=== PATIENT | male | born 1965 | race Caucasian/White ===

== ENCOUNTER 2020-06-29 17:07 | Emergency (ER) | payer OTHER ==
[~2020-06-29] VITALS: Ht 180.3 cm; Wt 104.3 kg
[~2020-06-29 17:07] MED LIST: ASPIR 8181 MG PO; ASPIRIN325 MG PO; ATENOLOL25 MG PO; GABAPENTIN300 MG PO; HUMALOG100 UNIT/1 SC; LEVEMIR100 UNIT/1 SC; LIPITOR40 MG PO; METFORMIN HCL500 MG PO; NOVOLOG100 UNIT/1 SC; PEPCID20 MG PO; PLAVIX75 MG PO; PROPAFENONE HC225 M1 PO; ZESTRIL2.5 MG PO; ZOCOR20 MG PO; ZOLOFT100 MG PO; ZOLOFT50 MG PO
[2020-06-29] MEDS ORDERED: SODIUM CHLORIDE 0.9% 1000ML 1,000 ML IV STA (17:22)
[2020-06-29] MEDS ORDERED: ASPIRIN 81 MG CHEW TAB PO ONE (17:30)
[2020-06-29 17:49] LABS: BASOPHILS # (AUTO) 0.1 (0.0-0.1); BASOPHILS % 0.7 % (0.0-1.0); EOSINOPHILS # (AUTO) 0.4 (0.0-0.4); HEMATOCRIT 48.4 % (38.2-49.6); HEMOGLOBIN 16.2 g/dL (14.0-18.0); LYMPHOCYTES # (AUTO) 2.3 (1.0-3.2); LYMPHOCYTES % 23.9 % (18.0-39.1); MEAN CORPUSCULAR HEMOGLOBIN 28.7 pg (28-32); MEAN CORPUSCULAR HGB CONC 33.5 g/dL (31-35); MEAN CORPUSCULAR VOLUME 85.7 fL (81-99); MONOCYTES # (AUTO) 0.7 (0.2-0.8); MONOCYTES % 7.6 % (4.4-11.3); NEUTROPHILS # (AUTO) 5.9 (2.1-6.9); NEUTROPHILS % 62.7 % (38.7-80.0); PLATELET COUNT 221 x10e3/uL (140-360); RED BLOOD COUNT 5.65 x10e6/uL (4.3-5.7); RED CELL DISTRIBUTION WIDTH 13.1 % (11.7-14.4)
[2020-06-29 18:06] LABS: ALANINE AMINOTRANSFERASE 23 IU/L (0-55); ALBUMIN 4.2 g/dL (3.5-5.0); ALBUMIN/GLOBULIN RATIO 1.4 (0.8-2.0); ALKALINE PHOSPHATASE 97 IU/L (40-150); ANION GAP 16.9 mmol/L (8-16); BLOOD UREA NITROGEN 19 mg/dL (7-26); BUN/CREATININE RATIO 17 (6-25); CALCIUM 9.5 mg/dL (8.4-10.2); CARBON DIOXIDE 28 mmol/L (22-29); CHLORIDE 102 mmol/L (98-107); CREATINE KINASE 116 IU/L (30-200); CREATININE, SERUM 1.11 mg/dL (0.72-1.25); EST GLOMERULAR FILTRATION RATE > 60 ML/MIN (60-); GLUCOSE 263 mg/dL (74-118); POTASSIUM 4.9 mmol/L (3.5-5.1); SODIUM 142 mmol/L (136-145)
[2020-06-29] MEDS ORDERED: PREDNISONE20 MG PO (18:50)
[2020-06-29] MEDS ORDERED: VENTOLIN HFA18 GM INH (18:50)
== END 2020-06-29 19:00 | disposition home or self-care (01) ==
LOC: ER 17:20
DX: R06.00 Dyspnea, unspecified (principal); R61 Generalized hyperhidrosis; E11.65 Type 2 diabetes mellitus with hyperglycemia; I10 Essential (primary) hypertension; E78.5 Hyperlipidemia, unspecified; F41.9 Anxiety disorder, unspecified; K21.9 Gastro-esophageal reflux disease without esophagitis; I25.2 Old myocardial infarction; Z95.5 Presence of coronary angioplasty implant and graft
CPT/HCPCS: 36415; 71045; 80053; 82550; 82553; 83880; 84484; 85025; 93005; 99283; J7030

== ENCOUNTER 2020-07-29 12:34 | Observation (INO) | payer OTHER ==
[~2020-07-29] VITALS: Ht 180.3 cm; Wt 105.7 kg
[~2020-07-29 12:34] MED LIST changes: +PREDNISONE20 MG PO; +VENTOLIN HFA18 GM INH
[2020-07-29] MEDS ORDERED: SODIUM CHLORIDE 0.9% 1000ML 1,000 ML IV STA (12:56)
[2020-07-29 13:21] LABS: BASOPHILS # (AUTO) 0.1 (0.0-0.1); BASOPHILS % 0.8 % (0.0-1.0); EOSINOPHILS # (AUTO) 0.5 (0.0-0.4); HEMATOCRIT 48.4 % (38.2-49.6); HEMOGLOBIN 15.8 g/dL (14.0-18.0); LYMPHOCYTES # (AUTO) 1.7 (1.0-3.2); LYMPHOCYTES % 20.8 % (18.0-39.1); MEAN CORPUSCULAR HEMOGLOBIN 28.8 pg (28-32); MEAN CORPUSCULAR HGB CONC 32.6 g/dL (31-35); MEAN CORPUSCULAR VOLUME 88.2 fL (81-99); MONOCYTES # (AUTO) 0.6 (0.2-0.8); MONOCYTES % 7.8 % (4.4-11.3); NEUTROPHILS # (AUTO) 5.1 (2.1-6.9); NEUTROPHILS % 63.7 % (38.7-80.0); PLATELET COUNT 220 x10e3/uL (140-360); RED BLOOD COUNT 5.49 x10e6/uL (4.3-5.7); RED CELL DISTRIBUTION WIDTH 13.8 % (11.7-14.4)
[2020-07-29 13:26] LABS: INR 0.81; PROTHROMBIN TIME 11.7 seconds (11.9-14.5)
[2020-07-29 13:27] LABS: PARTIAL THROMBOPLASTIN TIME 26.7 seconds (23.8-35.5)
[2020-07-29 13:34] LABS: ALANINE AMINOTRANSFERASE 20 IU/L (0-55); ALBUMIN 3.9 g/dL (3.5-5.0); ALBUMIN/GLOBULIN RATIO 1.3 (0.8-2.0); ALKALINE PHOSPHATASE 101 IU/L (40-150); ANION GAP 14.7 mmol/L (8-16); BLOOD UREA NITROGEN 14 mg/dL (7-26); BUN/CREATININE RATIO 11 (6-25); CALCIUM 9.7 mg/dL (8.4-10.2); CARBON DIOXIDE 27 mmol/L (22-29); CHLORIDE 100 mmol/L (98-107); CREATINE KINASE 145 IU/L (30-200); CREATININE, SERUM 1.22 mg/dL (0.72-1.25); EST GLOMERULAR FILTRATION RATE > 60 ML/MIN (60-); POTASSIUM 4.7 mmol/L (3.5-5.1); SODIUM 137 mmol/L (136-145)
[2020-07-29 13:36] LABS: GLUCOSE 431 mg/dL (74-118)
[2020-07-29] MEDS ORDERED: INSULIN REGULAR, HUMAN 100 UNIT/1 ML 3ML VIAL IV ONE (13:45)
[2020-07-29] MEDS ORDERED: SODIUM CHLORIDE 0.9% 50ML 50 ML ONE (14:12)
[2020-07-29] MEDS ORDERED: IOPAMIDOL 370 MG/ML 200 ML INFUS..BTL INJ ONE (14:13)
[2020-07-29] MEDS ORDERED: MORPHINE SULFATE INJ 2 MG/ML SYR IV PRN (15:00)
[2020-07-29] MEDS ORDERED: DEXTROSE 50% SYRINGE 50 ML IV PRN (15:00)
[2020-07-29] MEDS ORDERED: SODIUM CHLORIDE 0.9% 1000ML 1,000 ML IV ONE (15:00)
[2020-07-29] MEDS ORDERED: ONDANSETRON HCL INJ 2MG/ML 2ML 2 MG/ML VIAL IV PRN (15:00)
[2020-07-29] MEDS: INSULIN LISPRO 100 UNIT/1 ML 3ML VIAL SQ SCH ×2 (16:30→21:30)
[2020-07-29 19:31] LABS: CREATINE KINASE 104 IU/L (30-200)
[2020-07-29 21:09] VITALS: BP 91/62
[2020-07-29 21:25] VITALS: BP 120/69
[2020-07-29] MEDS ORDERED: BUPROPION XL150 MG PO (22:25)
[2020-07-29] MEDS ORDERED: LISINOPRIL5 MG PO (22:25)
[2020-07-29] MEDS ORDERED: CYMBALTA30 MG PO (22:25)
[2020-07-29] MEDS ORDERED: ATORVASTATIN CA20 MG PO (22:25)
[2020-07-29] MEDS ORDERED: TRESIBA100 UNIT/1 SQ (22:25)
[2020-07-29] MEDS ORDERED: NOVOLOG100 UNIT/1 SC (22:25)
[2020-07-30] VITALS (8 sets, daily range): BP systolic 97–126; BP diastolic 64–91
[2020-07-30 05:15] LABS: BASOPHILS # (AUTO) 0.1 (0.0-0.1); BASOPHILS % 0.6 % (0.0-1.0); EOSINOPHILS # (AUTO) 0.5 (0.0-0.4); EOSINOPHILS % 5.7 % (0.0-6.0); HEMATOCRIT 44.4 % (38.2-49.6); HEMOGLOBIN 14.5 g/dL (14.0-18.0); LYMPHOCYTES # (AUTO) 1.9 (1.0-3.2); LYMPHOCYTES % 23.7 % (18.0-39.1); MEAN CORPUSCULAR HEMOGLOBIN 28.3 pg (28-32); MEAN CORPUSCULAR HGB CONC 32.7 g/dL (31-35); MEAN CORPUSCULAR VOLUME 86.5 fL (81-99); MONOCYTES # (AUTO) 0.7 (0.2-0.8); MONOCYTES % 9.3 % (4.4-11.3); NEUTROPHILS # (AUTO) 4.7 (2.1-6.9); NEUTROPHILS % 59.7 % (38.7-80.0); PLATELET COUNT 196 x10e3/uL (140-360); RED BLOOD COUNT 5.13 x10e6/uL (4.3-5.7); RED CELL DISTRIBUTION WIDTH 13.7 % (11.7-14.4)
[2020-07-30 05:32] LABS: ANION GAP 12.9 mmol/L (8-16); BLOOD UREA NITROGEN 14 mg/dL (7-26); BUN/CREATININE RATIO 16 (6-25); CALCIUM 8.8 mg/dL (8.4-10.2); CARBON DIOXIDE 23 mmol/L (22-29); CHLORIDE 104 mmol/L (98-107); CHOL/HDL RATIO 4.9 (3.9-4.7); CHOLESTEROL 143 MD/DL (0-199); CREATININE, SERUM 0.87 mg/dL (0.72-1.25); EST GLOMERULAR FILTRATION RATE > 60 ML/MIN (60-); GLUCOSE 285 mg/dL (74-118); HDL CHOLESTEROL 29 MG/DL (40-60); LDL CHOLESTEROL 73 MG/DL (60-130); POTASSIUM 3.9 mmol/L (3.5-5.1); SODIUM 136 mmol/L (136-145); TRIGLYCERIDES 207 MG/DL (0-149)
[2020-07-30 05:56] LABS: CREATINE KINASE 88 IU/L (30-200)
[2020-07-30] MEDS: INSULIN LISPRO 100 UNIT/1 ML 3ML VIAL SQ SCH ×7 (07:30→21:06)
[2020-07-30] MEDS: ATENOLOL 50 MG TAB PO SCH (08:03)
[2020-07-30] MEDS: CLOPIDOGREL BISULFATE 75 MG TAB PO SCH (08:03)
[2020-07-30] MEDS: DULOXETINE HCL 30 MG DELAYED RELEASE PO SCH (08:03)
[2020-07-30] MEDS: ASPIRIN 325 MG TAB PO SCH (08:03)
[2020-07-30] MEDS: BUPROPION HCL 150 MG TABCR PO SCH (08:03)
[2020-07-30] MEDS ORDERED: PROPAFENONE HCL 225 MG CAPCR PO SCH (09:00)
[2020-07-30] MEDS ORDERED: ASPIRIN 81 MG ENTERIC COATED PO SCH (09:00)
[2020-07-30] MEDS ORDERED: INSULIN DEGLUDEC 30 UNIT SQ SCH (09:00)
[2020-07-30 13:37] LABS: CREATINE KINASE 94 IU/L (30-200)
[2020-07-30 14:49] LABS: FREE T4 (FREE THYROXINE) 0.78 ng/dL (0.8-1.8); THYROID STIMULATING HORMONE 2.209 uIU/mL (0.350-4.940)
[2020-07-30] MEDS ORDERED: ATORVASTATIN 20 MG TAB PO SCH (21:00)
[2020-07-30] MEDS ORDERED: INSULIN GLARGINE 100 UNITS/ML VIAL SQ SCH (21:00)
[2020-07-30] MEDS ORDERED: ACETAMINOPHEN 325 MG TAB PO PRN (23:45)
[2020-07-30] MEDS ORDERED: PANTOPRAZOLE SOD 40 MG TABEC PO ONE (23:45)
[2020-07-31] MEDS ORDERED: PANTOPRAZOLE SOD 40 MG TABEC PO ONE
[2020-07-31 00:34] VITALS: BP 126/70
[2020-07-31 05:17] VITALS: BP 123/71
[2020-07-31] MEDS: INSULIN LISPRO 100 UNIT/1 ML 3ML VIAL SQ SCH ×5 (07:30→16:30)
[2020-07-31 07:42] VITALS: BP 117/87
[2020-07-31 07:59] VITALS: BP 117/87
[2020-07-31] MEDS: ASPIRIN 325 MG TAB PO SCH (09:00)
[2020-07-31] MEDS: CLOPIDOGREL BISULFATE 75 MG TAB PO SCH (09:00)
[2020-07-31] MEDS: ATENOLOL 50 MG TAB PO SCH (09:00)
[2020-07-31] MEDS ORDERED: REGADENOSON 0.4 MG/5 ML SYR IV ONE (09:50)
[2020-07-31] MEDS: DULOXETINE HCL 30 MG DELAYED RELEASE PO SCH (12:30)
[2020-07-31] MEDS: BUPROPION HCL 150 MG TABCR PO SCH (12:30)
[2020-07-31 12:35] VITALS: BP 116/58
[2020-07-31] MEDS ORDERED: [UNRECOGNIZED DRUG - OTHER] (16:40)
[2020-07-31] MEDS ORDERED: NOVOLOG100 UNIT/1 SC (16:41)
[2020-07-31 16:45] VITALS: BP 127/60
[2020-07-31] MEDS ORDERED: INSULIN LISPRO 100 UNIT/1 ML 3ML VIAL SQ SCH (17:00)
[2020-07-31] MEDS ORDERED: PANTOPRAZOLE SOD 40 MG TABEC PO SCH ×2 (21:00)
[2020-07-31] MEDS ORDERED: INSULIN GLARGINE 100 UNITS/ML VIAL SQ SCH (21:00)
== END 2020-07-31 18:19 | disposition home or self-care (01) ==
LOC: ER 12:56 → ERHOLD 15:00 → MED/SURG 20:04
PROVIDERS: ADMIT Internal Medicine; ATTEND Internal Medicine
DX: I49.3 Ventricular premature depolarization (principal); I48.91 Unspecified atrial fibrillation; Z79.01 Long term (current) use of anticoagulants; E66.9 Obesity, unspecified; Z68.32 Body mass index [BMI] 32.0-32.9, adult; E78.5 Hyperlipidemia, unspecified; F41.9 Anxiety disorder, unspecified; F32.9 Major depressive disorder, single episode, unspecified; Z20.822 Contact with and (suspected) exposure to COVID-19; I25.10 Atherosclerotic heart disease of native coronary artery without angina pectoris; Z95.1 Presence of aortocoronary bypass graft; E11.65 Type 2 diabetes mellitus with hyperglycemia; Z86.718 Personal history of other venous thrombosis and embolism; R13.10 Dysphagia, unspecified
CPT/HCPCS: 36415 ×3; 70450; 71045; 71260; 78452; 80048; 80053; 80061; 82550 ×2; 82553 ×2; 82948 ×3; 83036 ×2; 83735; 83880; 84439; 84443; 84484 ×2; 85025 ×2; 85379; 85610; 85730; 93005 ×2; 93017; 93306; 93880; A9502; G0378 ×3; J2785; J7030; Q9967; S0164; U0002